=== PATIENT | male | born 1955 | race Caucasian/White ===

== ENCOUNTER 2020-04-03 18:53 | Emergency (ER) | payer OTHER, SELFPAY ==
[~2020-04-03] VITALS: Ht 172.7 cm; Wt 80.3 kg
[2020-04-03 18:56] VITALS: Ht 172.7 cm; Wt 80.3 kg
[2020-04-03 21:13] VITALS: BP 111/73
== END 2020-04-03 21:13 | disposition home or self-care (01) ==
LOC: ED 18:53
DX: U07.1 COVID-19 (principal); J12.89 Other viral pneumonia
CPT/HCPCS: 87804; U0003